=== PATIENT | female | born 1975 | race Two or more races ===

== ENCOUNTER 2021-04-12 19:42 | Emergency (ER) | payer SELFPAY ==
[~2021-04-12] VITALS: Ht 165.1 cm; Wt 101.5 kg
[2021-04-12 20:06] LABS: BILIRUBIN,URINE MODERATE (NEG); CLARITY,URINE TURBID; COLOR,URINE RED; NITRITE,URINE POSITIVE (NEG); PH,URINE 5.5 (<5.0-8.0); PROTEIN,URINE 100 mg/dL (NEG-TRACE)
[2021-04-12 20:12] LABS: RBC,URINE TNTC /HPF (0-2)
[2021-04-12 20:13] LABS: BACTERIA,URINE FEW /HPF (0-FEW)
[2021-04-12 20:17] LABS: U PREG PATIENT NEGATIVE (NEG)
--- NOTE | 2021-04-12 20:30 | PHYS DOC ---
General Adult EDM: Chief Complaint: VAGINAL BLEEDING HPI: HPI: Patient is a 46 year old female with no significant medical history who presents to the ED today complaining of vaginal bleeding that began yesterday and has gotten progressively worse with clots today. Patient is also complaining of slight abdominal cramping. Denies any nausea, vomiting. Denies any chance she is . Patient is Kyrgyz-speaking and interpretation is provided by the daughter (MAG KENNEY BUTTON DECORATING MACHINE OPERATOR) Review of Systems: Review of Systems: Constitutional: Denies fever or chills. [] Eyes: Denies change in visual acuity. [] HENT: Denies nasal congestion or sore throat. [] Respiratory: Denies cough or shortness of breath. [] Cardiovascular: Denies chest pain or edema. [] GI: Reports vaginal bleeding, abdominal cramping, denies nausea, vomiting, bloody stools or diarrhea. [] : Denies dysuria. [] Musculoskeletal: Denies back pain or joint pain. [] Integument: Denies rash. [] Neurologic: Denies headache, focal weakness or sensory changes. [] Psychiatric: Denies depression or anxiety. [] (MAG KENNEY BUTTON DECORATING MACHINE OPERATOR) Heart Score: C/O Chest Pain: N/A Risk Factors: Risk Factors: DM, Current or recent (<one month) smoker, HTN, HLP, family history of CAD, obesity. Risk Scores: Score 0 - 3: 2.5% MACE over next 6 weeks - Discharge Home Score 4 - 6: 20.3% MACE over next 6 weeks - Admit for Clinical Observation Score 7 - 10: 72.7% MACE over next 6 weeks - Early Invasive Strategies (MAG KENNEY BUTTON DECORATING MACHINE OPERATOR) Allergies: Allergies: Allergies Coded Allergies Type Severity Reaction Last Updated Verified No Known Drug Allergies 04/12/21 No (MAG KENNEY BUTTON DECORATING MACHINE OPERATOR) Physical Exam: PE: Constitutional: Well developed, well nourished, no acute distress, non-toxic appearance. [] HENT: Normocephalic, atraumatic, bilateral external ears normal, oropharynx moist, no oral exudates, nose normal. [] Eyes: PERRLA, EOMI, conjunctiva normal, no discharge. [] Neck: Normal range of motion, no tenderness, supple, no stridor. [] Cardiovascular:Heart rate regular rhythm, no murmur [] Lungs & Thorax: Bilateral breath sounds clear to auscultation [] Abdomen: Bowel sounds normal, soft, no tenderness, no masses, no pulsatile masses. [] Pelvic exam External pelvic has small amount of dried blood. Cervix is visualized, closed, no CMT, no adnexal tenderness, trace amount of bright red blood in the vaginal vault Skin: Warm, dry, no erythema, no rash. [] Back: No tenderness, no CVA tenderness. [] Extremities: No tenderness, no cyanosis, no clubbing, ROM intact, no edema. [] Neurologic: Alert and oriented X 3, normal motor function, normal sensory function, no focal deficits noted. [] Psychologic: Affect normal, judgement normal, mood normal. [] (MAG KENNEY APRN) Current Patient Data: Labs: Laboratory Tests Test 04/12/21 19:52 Urine Collection Type Unknown Urine Color Red Urine Clarity Turbid Urine pH 5.5 (<5.0-8.0) Urine Specific [place] >=1.030 (1.000-1.030) Urine Protein 100 mg/dL (NEG-TRACE) Urine Glucose (UA) Negative mg/dL (NEG) Urine Ketones (Stick) 15 mg/dL (NEG) Urine Blood Large (NEG) Urine Nitrite Positive (NEG) Urine Bilirubin Moderate (NEG) Urine Urobilinogen Dipstick 1.0 mg/dL (0.2 mg/dL) Urine Leukocyte Esterase Moderate (NEG) Urine RBC Tntc /HPF (0-2) Urine WBC 11-20 /HPF (0-4) Urine Squamous Epithelial Cells Mod /LPF Urine Bacteria Few /HPF (0-FEW) Urine Mucus Mod /LPF Urine Test Negative (NEG) Microbiology 04/12/21 Wet Prep - Final, Complete (MAG KENNEY BUTTON DECORATING MACHINE OPERATOR) EKG: EKG: [] (MAG KENNEY APRN) Radiology/Procedures: Radiology/Procedures: [] (MAG KENNEY APRN) Course & Med Decision Making: Course & Med Decision Making Pertinent Labs and Imaging studies reviewed. (See chart for details) This is a 46-year-old female patient presenting to the ED today with vaginal bleeding that began yesterday and has gotten progressively worse today. CBC, CMP with no acute findings. Normal hemoglobin and hematocrit. Pelvic ultrasound with no acute findings. UA positive for UTI. Discharge to home with cephalexin. Follow-up with [facility]. (MAG KENNEY APRN) Course & Med Decision Making Chart Reviewed. Care and Treatment plan formulated by FILLER MACHINE OPERATOR. I was available for consult. (MIGUELITO REES DO) Blessing Disclaimer: Blessing Disclaimer: This electronic medical record was generated, in whole or in part, using a voice recognition dictation system. (MAG KENNEY APRN) Departure Departure Impression: Primary Impression: Dysfunctional uterine bleeding Additional Impression: Urinary tract infection Qualified Codes: N39.0 - Urinary tract infection, site not specified Disposition: HOME / SELF CARE / HOMELESS Condition: STABLE Referrals: NO PCP (PCP) KAVIN MENARD MD Follow-up in 1 week Patient Instructions: Urinary Tract Infection, Uterine Bleeding, Dysfunctional Additional Instructions: You were evaluated in the emergency room, your uterus is within normal limits. You have urinary tract infection, take the prescribed antibiotics until completed. Follow-up with the provided [facility] or your own doctor in the course of this week or next week Scripts Cephalexin (CEPHALEXIN) 500 Mg Tablet 1 TAB PO BID, #14 TAB Prov: MAG KENNEY APRN 04/12/21 MAG KENNEY APRN Apr 12, 2021 20:30 MIGUELITO REES DO Apr 13, 2021 01:42
[2021-04-12 20:31] LABS: BASO # 0.1 x10^3/uL (0.0-0.2); BASO % 1 % (0-3); EOS # 0.2 x10^3/uL (0.0-0.7); EOS % 2 % (0-3); HEMATOCRIT 37.5 % (36.0-47.0); HEMOGLOBIN 12.7 g/dL (12.0-15.5); LYMPH # 3.3 x10^3/uL (1.0-4.8); LYMPH % 42 % (24-48); MEAN CORPUSCULAR HEMOGLOBIN 29 pg (25-35); MEAN CORPUSCULAR HGB CONC 34 g/dL (31-37); MEAN CORPUSCULAR VOLUME 86 fL (79-100); MONO # 0.6 x10^3/uL (0.0-1.1); MONO % 8 % (0-9); NEUT # 3.7 x10^3/uL (1.8-7.7); NEUT % 47 % (31-73); PLATELET COUNT 241 x10^3/uL (140-400); RED BLOOD COUNT 4.35 x10^6/uL (3.50-5.40); RED CELL DISTRIBUTION WIDTH 13.1 % (11.5-14.5); WHITE BLOOD COUNT 7.9 x10^3/uL (4.0-11.0)
[2021-04-12 20:45] LABS: CALCIUM 8.5 mg/dL (8.5-10.1); CREATININE 0.9 mg/dL (0.6-1.0); GFR 66.8; POTASSIUM 4.2 mmol/L (3.5-5.1)
[2021-04-12 20:47] LABS: ALBUMIN 3.8 g/dL (3.4-5.0); ALBUMIN/GLOBULIN RATIO 1.2 (1.0-1.7); TOTAL BILIRUBIN 0.2 mg/dL (0.2-1.0); TOTAL PROTEIN 6.9 g/dL (6.4-8.2)
[2021-04-12 22:38] VITALS: BP 142/75
[2021-04-12] MEDS ORDERED: CEPH500T PO (22:40)
[2021-04-12] MEDS ORDERED: CEPHALEXIN 250 MG CAPSULE. PO STA (22:41)
--- NOTE | 2021-04-12 22:45 | RAD ---
Pelvic ultrasound to include transabdominal and transvaginal imaging 04/12/2021 CLINICAL HISTORY: Heavy vaginal bleeding. TECHNIQUE: Transabdominal and transvaginal pelvic ultrasound study was performed. Multiple images wer e obtained. FINDINGS: The uterus is within normal limits in size and echogenicity. It measures 9.7 x 5.2 x 4.4 cm in longitudinal, transverse, and AP dimensions. The endometrial echo complex measures 6 mm in thickn ess which is within normal limits. No focal abnormality of the uterus is seen. The right ovary is normal in size and echogenicity. It measures 1.7 x 1.6 x 1.3 cm in size. The left ovary is not visualized. No adnexal mass is seen. No free fluid is noted. IMPRESSION: Negative study. Electronically signed by: Suraj Nation MD (04/12/2021 10:42 PM) [id number]
[2021-04-14 20:08] LABS: GC PROBE Negative (Negative)
== END 2021-04-12 22:55 | disposition home or self-care (01) ==
LOC: ER 19:42
DX: N39.0 Urinary tract infection, site not specified (principal); N93.8 Other specified abnormal uterine and vaginal bleeding
CPT/HCPCS: 76830; 76856; 80053; 81001; 81025; 85025; 87086; 87491; 87591; 99285; Q0111